=== PATIENT | female | born 1960 ===

== ENCOUNTER 2020-07-12 13:53 | Outpatient (REF) | payer OTHER, MEDICAID, SELFPAY ==
--- NOTE | 2020-07-12 13:54 | XR_ITS ---
EXAMINATION: XR KNEES, STANDING AP XR KNEE, RIGHT CLINICAL INFORMATION: Right knee pain. COMPARISON: Radiographs right knee 12/27/2016. TECHNIQUE: Standing AP view of both knees is performed along with lateral and axial patella views of the right knee. FINDINGS: Right knee shows no definite joint narrowing. No subchondral sclerosis, erosive change, or chondrocalcinosis. There is borderline spur medial femoral condyle and lateral tibial spine. There is spurring at the quadriceps insertion on the patella and trace suprapatellar effusion with borderline thickening of the suprapatellar bursa. Hoffa's fat pad appears normal. Axial view right patella shows small lateral patellar spur. No joint narrowing or erosive change. Left knee shows no definite joint narrowing. No erosive changes or destructive process. XR/XR knee standing BI IMPRESSION: 1. Right Knee: Trace suprapatellar effusion. Mild spurring medial femoral condyle, lateral tibial spine, and quadriceps insertion. No definite joint narrowing. No erosive change. 2. Left Knee: Unremarkable.
--- NOTE | 2020-07-12 13:54 | XR_ITS ---
EXAMINATION: XR KNEES, STANDING AP XR KNEE, RIGHT CLINICAL INFORMATION: Right knee pain. COMPARISON: Radiographs right knee 12/27/2016. TECHNIQUE: Standing AP view of both knees is performed along with lateral and axial patella views of the right knee. FINDINGS: Right knee shows no definite joint narrowing. No subchondral sclerosis, erosive change, or chondrocalcinosis. There is borderline spur medial femoral condyle and lateral tibial spine. There is spurring at the quadriceps insertion on the patella and trace suprapatellar effusion with borderline thickening of the suprapatellar bursa. Hoffa's fat pad appears normal. Axial view right patella shows small lateral patellar spur. No joint narrowing or erosive change. Left knee shows no definite joint narrowing. No erosive changes or destructive process. XR/XR knee RT 2V IMPRESSION: 1. Right Knee: Trace suprapatellar effusion. Mild spurring medial femoral condyle, lateral tibial spine, and quadriceps insertion. No definite joint narrowing. No erosive change. 2. Left Knee: Unremarkable.
== END 2020-07-12 13:54 | disposition home or self-care (01) ==
LOC: HO.HOSX 13:53
PROVIDERS: Visit Provider Physician Assistant
DX: M17.11 Unilateral primary osteoarthritis, right knee (principal)
CPT/HCPCS: 20610; 73560; 73565; 99212; J1040

== ENCOUNTER 2020-12-06 08:19 | Outpatient (REF) | payer OTHER, MEDICAID, SELFPAY ==
--- NOTE | ~2020-12-06 | XR_ITS ---
EXAMINATION: XR KNEE, LEFT CLINICAL INFORMATION: Pain COMPARISON: Previous x-ray July 2020 TECHNIQUE: Lateral and sunrise view of the left knee of the left knee. FINDINGS: No fracture or dislocation or bone lesion is seen. There is mild arthritis at the patellofemoral joint with small osteophytes. There are osteophytes at the quadriceps tendon insertion to the patella and patellar tendon origin. There is a joint effusion. XR/XR knee LT 2V IMPRESSION: Degenerative changes at the patellofemoral joint and joint effusion.
== END 2020-12-06 08:20 | disposition home or self-care (01) ==
LOC: HO.HOSX 08:19
PROVIDERS: Visit Provider Physician Assistant
DX: M17.12 Unilateral primary osteoarthritis, left knee (principal); M25.562 Pain in left knee; Z88.8 Allergy status to other drugs, medicaments and biological substances
CPT/HCPCS: 20610; 73560; J1040

== ENCOUNTER → 2021-04-26 13:17 | Outpatient (BNVA) | payer MEDICARE, MEDICAID, SELFPAY | PROVIDERS: Visit Provider Physician Assistant | DX: M17.12 Unilateral primary osteoarthritis, left knee (principal) | CPT/HCPCS: 99212 ==

== ENCOUNTER 2021-07-01 14:54 | Outpatient (REF) | payer MEDICARE, MEDICAID, SELFPAY ==
--- NOTE | ~2021-07-01 | MR_ITS ---
EXAMINATION: MR KNEE WITHOUT CONTRAST, LEFT CLINICAL INFORMATION: Left knee pain and swelling. Osteoarthritis. COMPARISON: Left knee radiographs dated 12/06/2020. TECHNIQUE: MRI of the knee without contrast was performed using routine sequences on a high-field scanner. FINDINGS: MENISCI: Medial Meniscus: Nondisplaced, oblique tibial articular surface tear of the posterior horn (sagittal image 17/26). Lateral Meniscus: Nondisplaced oblique inner margin/tibial articular surface tear of the meniscal body with extension to the lateral aspect of the posterior horn. Mild degenerative signal associated with the anterior root. LIGAMENTS: Cruciate: Intact. Collateral: Intact. EXTENSOR MECHANISM: Intact. ARTICULAR CARTILAGE/BONE: Patellofemoral Compartment: Lateral patellar articular cartilage signal heterogeneity and surface irregularity. Mild trochlear articular cartilage thinning. Tiny marginal osteophytes. Medial Compartment: Mild articular cartilage thinning. Tiny marginal osteophytes. Lateral Compartment: Mild articular cartilage signal heterogeneity. JOINT FLUID AND BURSAE: Small joint effusion and small Briggs's cyst. MR/MR knee LT wo con IMPRESSION: 1. Nondisplaced oblique tibial articular surface tear of the medial meniscus posterior horn. 2. Nondisplaced oblique inner margin/tibial articular surface tear of the lateral meniscal body extending to the posterior horn. Degenerative signal associated with the anterior root. 3. Mild patellofemoral as well as minimal medial and lateral compartment osteoarthritis. Small joint effusion and small Briggs's cyst.
== END 2021-07-01 14:55 | disposition home or self-care (01) ==
LOC: HO.MRI 14:54
PROVIDERS: Visit Provider Physician Assistant
DX: M17.12 Unilateral primary osteoarthritis, left knee (principal)
CPT/HCPCS: 73721

== ENCOUNTER → 2021-08-08 12:45 | Outpatient (BNVA) | payer MEDICARE, MEDICAID, SELFPAY | PROVIDERS: Visit Provider Physician Assistant | DX: S83.242D Other tear of medial meniscus, current injury, left knee, subsequent encounter (principal); M17.12 Unilateral primary osteoarthritis, left knee | CPT/HCPCS: 99212 ==

== ENCOUNTER 2021-09-04 09:41 | Day surgery (SDC) | payer OTHER, SELFPAY ==
[2021-08-20 13:49] VITALS: BMI 27.7
--- NOTE | 2021-08-26 09:08 | P.CONAN_ITS ---
Documented by User: Mahnaz Fontaine NP 08/26/21 09:09 HPI - Anesthesia Eval Consult details Narrative: 61yo F for Left Knee Arthroscopy PMFSH Active Problems Active Problems: All Active Problems (Updated 08/20/21 @ 13:49 by Yue Sanabria RN) Right knee pain (Acute) Osteoarthritis of right knee (Acute) Patellofemoral arthritis of left knee (Acute) Acute medial meniscus tear of left knee (Acute) Past Medical History Medical History (Updated 08/20/21 @ 13:49 by Yue Sanabria RN) Asthma HTN (hypertension) Surgical History Surgical History (Updated 08/20/21 @ 13:40 by Yue Sanabria RN) Hx of elbow surgery Hx of knee surgery Social History Social History (Updated 12/06/20 @ 08:40 by JAY Lay) Patient Tobacco Use Status: Current everyday Tobacco user Tobacco use type: Cigarette Cigarettes Per Day: 7 Years Smoked: 40 Use of substances other than those prescribed or required for medical reasons: Yes Substance Use Type Other:: advised to hold pre-op Substance Use Frequency: Occasionally Are you DNR?: No Advance Directives: No Advance Directives Information Provided: Yes Advance Directives on File: No Current occupational status: disabled 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 Meds Allergies Allergy/AdvReac Type Severity Reaction Status Date / Time atorvastatin [From Allergy Intermediate swelling/hi Verified 08/20/21 13:35 Lipitor] ves lisinopril Allergy Intermediate Face Verified 08/20/21 13:35 Swelling Home Medications Medication Instructions Recorded Confirmed Last Taken Type albuterol sulfate 2 puff 08/20/21 08/20/21 Unknown History 90 mcg/actuation INHALATION Q4-6H PRN aerosol inhaler (ProAir HFA) fluoxetine 10 mg 10 mg PO DAILY 08/20/21 08/20/21 Unknown History tablet hydrochlorothiazi 12.5 mg PO DAILY 08/20/21 08/20/21 Unknown History de 12.5 mg tablet losartan 50 mg 50 mg PO DAILY 08/20/21 08/20/21 Unknown History tablet trazodone 50 mg 50 mg PO BEDTIME 08/20/21 08/20/21 Unknown History tablet Exam Exam Date and Time: August 26, 2021 0909 Height,Weight and Vital Signs: Height 5 ft 6 in Weight 78.018 kg Assessment and Plan Assessment Anesthesia Assessment: Chart Reviewed Documented by User: Ace Rojas 09/04/21 16:06 PMFSH Past Medical History Medical History (Updated 08/20/21 @ 13:49 by Yue Sanabria RN) Asthma HTN (hypertension) Functional capacity: independent ambulation Family History Family history of problems with anesthesia: No Surgical History Surgical History (Updated 08/20/21 @ 13:40 by Yue Sanabria RN) Hx of elbow surgery Hx of knee surgery History of Problems with Anesthesia: No Social History Social History (Updated 12/06/20 @ 08:40 by JAY Lay) Patient Tobacco Use Status: Current everyday Tobacco user Tobacco use type: Cigarette Cigarettes Per Day: 7 Years Smoked: 40 Use of substances other than those prescribed or required for medical reasons: Yes Substance Use Type Other:: advised to hold pre-op Substance Use Frequency: Occasionally Are you DNR?: No Advance Directives: No Advance Directives Information Provided: Yes Advance Directives on File: No Current occupational status: disabled 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 Meds Allergies Allergy/AdvReac Type Severity Reaction Status Date / Time atorvastatin [From Allergy Intermediate swelling/hi Verified 08/20/21 13:35 Lipitor] ves lisinopril Allergy Intermediate Face Verified 08/20/21 13:35 Swelling Home Medications Medication Instructions Recorded Confirmed Last Taken Type albuterol sulfate 2 puff 08/20/21 08/20/21 Unknown History 90 mcg/actuation INHALATION Q4-6H PRN aerosol inhaler (ProAir HFA) fluoxetine 10 mg 10 mg PO DAILY 08/20/21 08/20/21 Unknown History tablet hydrochlorothiazi 12.5 mg PO DAILY 08/20/21 08/20/21 Unknown History de 12.5 mg tablet losartan 50 mg 50 mg PO DAILY 08/20/21 08/20/21 Unknown History tablet trazodone 50 mg 50 mg PO BEDTIME 08/20/21 08/20/21 Unknown History tablet Exam Airway Mallampati Class: II TM Dist: >3cm Neck ROM: Full Partial: Upper and Lower Loose/Missing/Broken Teeth: Yes Heart: rrr Lungs: bl breath sounds Assessment and Plan Assessment Anesthesia Assessment: Anesthesia Plan Discussed Final Anesthetic Review Family History of Problems with Anesthesia: No History of Problems with Anesthesia: No NPO: Yes ASA Class: II Final Preanesthetic Review: Meds/Allgs Chart Reviewed and Anes Risks/Benef Reviewed Patient Risk: Intermediate Procedure Risk: Intermediate Anesthetic Plan Anesthetic Plan: GA Disposition: Standard PACU
--- NOTE | 2021-08-27 10:34 | PC.NURSE ---
preop call made to pt on 08/26/21 to give arrival time of 0800 for procedure today with reimbursement representative. pt had not answered therefor voicemail was left with reimbursement representative. preop information and education mailed home did not provide arrival time and stated the surgical department would be calling the day before with arrival time. Pt no showed for 0800 on day of procedure 08/27/21. phone call placed to patient at 0850 and was unable to leave voicemail at that time. Dr. Zuleta and OR team aware.
[2021-09-04] VITALS (14 sets, daily range): BP systolic 113–150; BP diastolic 67–99; PULSE 62–76; RESP 16–22; TEMP 36.2–36.7; O2SAT 97–99
[2021-09-04] MEDS: Lactated Ringers 1,000 ML 100 ML IVCONT (10:42)
--- NOTE | 2021-09-04 12:57 | MHC.SHP ---
Pre-Procedural Eval Section A Date of Service: 09/04/21 The patient is an INPATIENT: No Changes since office visit: Yes Patient answered all questions; No Cold of Flu in the past 2 weeks, No New Medical Problems and No Changes in Medication The History & Physical has been completed within 30 days and I have reviewed it.: Yes Section B Chief Complaint: medial meniscus tear Allergies: Allergies Allergy/AdvReac Type Severity Reaction Status Date / Time atorvastatin [From Lipitor] Allergy Intermediate swelling/hi Verified 08/20/21 13:35 ves lisinopril Allergy Intermediate Face Verified 08/20/21 13:35 Swelling Plan I have reviewed the history and physical and performed a pertinent physical examination on my patient. No changes have occurred unless specified.
[2021-09-04] MEDS: fentaNYL citrate/PF 100 MCG/2 ML VIAL 25 MCG IVPUSH ×5 (14:15→14:35)
[2021-09-04] MEDS: oxyCODONE HCl Immed Release 5 MG TABLET PO (14:15)
[2021-09-04] MEDS: oxyCODONE HCl Immed Release 5 MG TABLET 10 MG PO (14:35)
--- NOTE | 2021-09-04 15:14 | P.BOP_ITS ---
Brief Operative Note Date of Service: 09/04/21 Pre-op diagnosis: left knee PF OA and MMT Post-op diagnosis: same Procedure: left knee mm and chondroplasty Surgeon: Slim Zuleta MD Anesthesia: GETA and local Was an Loan Analyst used for this Procedure?: No Loan Analyst: Rosita Cortes Estimated blood loss (mL): 5 IV fluids (mL): 500 Pathology: none sent Condition: stable Disposition: PACU
--- NOTE | 2021-09-09 12:15 | P.OP_ITS ---
Operative Note Operative Note Date of Service: 09/04/21 Narrative: Date of Service: 09/04/21 Pre-op diagnosis: left knee PF OA and MMT Post-op diagnosis: same Procedure: left knee mm and chondroplasty Surgeon: Slim Zuleta MD Anesthesia: GETA and local Was an Cycling Instructor used for this Procedure?: No Cycling Instructor: Rosita Cortes Estimated blood loss (mL): 5 IV fluids (mL): 500 Pathology: none sent Condition: stable Disposition: PACU Patient was brought to the operating room placed supine on the arthroscopic table and prepped and draped in standard sterile fashion. A time-out was called to identify proper site proper procedure proper surgeon and IV antibiotics per weight were administered. I began by exsanguinating the limb and insufflating tourniquet to 300 mm Hg. Then made a standard anterolateral stab incision. knee was insufflated with water and 30 degree arthroscope was placed. There was grade 1 fibrillations of the patella but overall suprapatellar pouch was plane and the gutters were clean. I descended into the medial compartment where I made my medial portal under direct visualization. There was obvious of complex tear of the body and posterior horn of the medial meniscus. Root was intact and there was grade 2 changes with some scattered grade 3 changes of the MFC. I used a combination of biter shaver and cautery to remove unstable portions of the meniscus. Approximately 30% meniscal volume was removed. I perfromed a chondroplasty of the MFC. Once I was happy with this the ACL was examined and found to be intact and the lateral compartment also was without the need for intervention. I then removed all instrumentation and closed the portals with skin glue. 25 mL of 2% Marcaine with epinephrine was injected into the joint and the surrounding soft tissues. Patient was then placed in sterile dressing extubated brought recovery room stable condition. There were no known complications.
== END 2021-09-04 17:30 | disposition home or self-care (01) ==
LOC: HO.SSS 09:41
PROVIDERS: Visit Provider Orthopaedic Surgery
PROC: (CPT 29870; principal; 2021-09-04 11:30)
DX: S83.232A Complex tear of medial meniscus, current injury, left knee, initial encounter (principal); M17.12 Unilateral primary osteoarthritis, left knee; M25.462 Effusion, left knee; M71.22 Synovial cyst of popliteal space [Baker], left knee; X58.XXXA Exposure to other specified factors, initial encounter; Y93.9 Activity, unspecified; Y92.9 Unspecified place or not applicable; Y99.8 Other external cause status; Z88.8 Allergy status to other drugs, medicaments and biological substances
CPT/HCPCS: 29881; J0171; J0690; J2250; J2550; J3010

== ENCOUNTER → 2021-09-16 13:03 | Outpatient (BNVA) | payer OTHER, SELFPAY | PROVIDERS: Visit Provider Physician Assistant | DX: S83.242D Other tear of medial meniscus, current injury, left knee, subsequent encounter (principal); M17.12 Unilateral primary osteoarthritis, left knee | CPT/HCPCS: 99212 ==

== ENCOUNTER → 2021-12-09 12:58 | Outpatient (BNVA) | payer OTHER, SELFPAY | PROVIDERS: Visit Provider Physician Assistant | DX: M17.12 Unilateral primary osteoarthritis, left knee (principal) | CPT/HCPCS: 99212 ==

== ENCOUNTER 2023-04-20 11:06 | Outpatient (AMB) | payer OTHER, SELFPAY ==
--- NOTE | 2023-04-20 11:08 | A.OFFVIS_ITS ---
Intake Vital Signs 04/20/23 11:11 Height 5 ft 7 in Weight 162 lb BMI 25.4 Intake Visit Reasons: ov- rt knee pain req injection last inj 07/29/20 Intake Note: Tiffani a 62 year old female who presents today for a follow up of right knee pain, last injection 07/29/20. Patient reports injection provided her relief until recently. States constant pain presented last week. She would like to repeat injection. Allergies atorvastatin [From Lipitor] Allergy (Intermediate, Verified 04/20/23 11:09) swelling/hives lisinopril Allergy (Intermediate, Verified 04/20/23 11:09) Face Swelling HPI ov- rt knee pain req injection last inj 07/29/20 HPI Details 62-year-old female who returns to the [facility] today for a follow-up of right knee pain. She had her last injection on 07/29/20 which provided her relief until last week. She states she has constant pain in her right knee and would like to repeat the injection. 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 Tenderness along the medial joint line. Full ROM with crepitus. Positive Callie?s. No ligamentous laxity. NVI. Office Procedures Joint Injection/Drain Joint Injection/Drain Primary Site: right knee Prep: site was prepped using aseptic technique, ethochloride spray was applied and injection warnings given Injected: 80 mg of, DepoMedrol, with 8 mL of, 1% plain lidocaine and in the joint Approach Used: anterolateral Procedure: The patient tolerated the procedure well and there was some relief with the local anesthesia Coding 22820 - Glenohumeral/Tronchanteric Bursa/Intraarticular Procedure code (CPT) selection complete Results Reviewed Results Reviewed: 04/20/23 11:25 Lidocaine HCl 2 % MPF [Xylocaine 2 % MPF] 5 ml .ROUTE .STK-MED ONE methylPREDNISolone acetate [DEPO-MedroL] 80 mg .ROUTE .STK-MED ONE Assessment & Plan Assessment & Plan (1) Osteoarthritis of right knee: Code(s): M17.11 - Unilateral primary osteoarthritis, right knee Qualifiers: Osteoarthritis type: primary Qualified Code(s): M17.11 - Unilateral primary osteoarthritis, right knee Plan We discussed options today which include steroid injection. They did consent to move forward with the right knee injection, which was tolerated well. I recommended rest, ice and elevation and OTC anti-inflammatories PRN for discomfort. An MRI of the right knee was also to further evaluate the meniscus. If symptoms persist or worsens over the next 6-8 weeks, patient will contact the office, otherwise follow-up as needed. Patient Instructions: Scribed for Imer Tim PA-C, by Joe Robertson biomedical equipment specialist, on 04/20/2023 at 11:30 AM JOYCE. Imer Palacio PA-C, have personally reviewed and agree with the information entered by the scribe. Coding Level of Care Code Est Pt Level 3 (89279) Diagnoses Primary osteoarthritis of right knee M17.11 Osteoarthritis type: primary CPT Codes Coding - Joint 7: 35000 - Glenohumeral/Tronchanteric Bursa/Intraarticular ([id number])
[2023-04-20 11:11] VITALS: BMI 25.4
== END 2023-04-20 12:35 | disposition home or self-care (01) ==
PROVIDERS: Visit Provider Physician Assistant
DX: M17.11 Unilateral primary osteoarthritis, right knee (principal)
CPT/HCPCS: 20610

== ENCOUNTER → 2023-04-20 11:06 | Outpatient (BNVA) | payer OTHER, SELFPAY | PROVIDERS: Visit Provider Physician Assistant | DX: M17.11 Unilateral primary osteoarthritis, right knee (principal) | CPT/HCPCS: 20610; 99212; J1040 ==

== ENCOUNTER 2023-07-01 14:13 | Outpatient (REF) | payer OTHER, SELFPAY ==
--- NOTE | ~2023-07-01 | MR_ITS ---
EXAMINATION: MR KNEE WITHOUT CONTRAST, RIGHT CLINICAL INFORMATION: Unilateral primary osteoarthritis of the right knee. COMPARISON: 07/12/2020 (radiographs) TECHNIQUE: MRI of the knee without contrast was performed using routine sequences on a high-field scanner. FINDINGS: MENISCI: Medial Meniscus: Intact Lateral Meniscus: There is a complex tear of the anterior horn and body with extrusion of much of the meniscal body. A radial component is suspected at the anterior horn, sparing the attachment to the anterior intrameniscal ligament. A horizontal component may be present at the meniscal body. LIGAMENTS: Cruciate: Intact Collateral: Intact EXTENSOR MECHANISM: Intact ARTICULAR CARTILAGE/BONE: Patellofemoral Compartment: There is mild nonuniform chondral thinning at the patella with a near full-thickness chondral fissure at the lateral facet and chondral fibrillation at the medial facet. More mild chondral thinning is present at the trochlea centrally. Small marginal osteophytes. Medial Compartment: Normal Lateral Compartment: Small to moderate size marginal osteophytes. Minimal chondral surface irregularity at the weightbearing surfaces of the lateral femoral condyle and lateral tibial plateau. JOINT FLUID AND BURSAE: Trace joint effusion. No Briggs's cyst. Minimal chondral debris in the anterior recess of the lateral compartment. There is a ovoid 1 cm low signal intensity loose body in the suprapatellar pouch just proximal to the trochlea. MR/MR knee RT wo con IMPRESSION: 1. Complex tear of the anterior horn and body of the lateral meniscus with extrusion of the meniscal body. 2. Mild patellofemoral and lateral compartment osteoarthritis. 3. Trace joint effusion with a 1 cm loose body in the suprapatellar pouch.
== END 2023-07-01 14:14 | disposition home or self-care (01) ==
LOC: HO.MRI 14:13
PROVIDERS: Visit Provider Physician Assistant
DX: M17.11 Unilateral primary osteoarthritis, right knee (principal)
CPT/HCPCS: 73721

== ENCOUNTER 2024-01-14 06:01 | Outpatient (REF) | payer OTHER, SELFPAY ==
--- NOTE | ~2024-01-14 | XR_ITS ---
EXAMINATION: XR KNEE, RIGHT CLINICAL INFORMATION: Unilateral primary osteoarthritis right knee. COMPARISON: 07/01/2023 MR right knee and left knee. 12/06/2020 x-ray left knee, 07/12/2020 bilateral knees. TECHNIQUE: AP standing view of bilateral knees as well as lateral and sunrise views of the right knee of the right knee. FINDINGS: RIGHT KNEE: Moderate joint effusion. Tiny tricompartmental osteophytes. Mild narrowing of the medial and lateral compartments. AP STANDING VIEW LEFT KNEE: Mild narrowing of the medial and lateral compartments with tiny marginal osteophytes. XR/XR knee RT 3V IMPRESSION: Mild degenerative changes in the bilateral knees.
== END 2024-01-14 06:02 | disposition home or self-care (01) ==
LOC: HO.HOSX 06:01
PROVIDERS: Visit Provider Physician Assistant
DX: M17.11 Unilateral primary osteoarthritis, right knee (principal); M70.61 Trochanteric bursitis, right hip
CPT/HCPCS: 20610; 73562; 99212; J1010

== ENCOUNTER 2024-01-14 09:53 | Outpatient (AMB) | payer OTHER, SELFPAY ==
--- NOTE | 2024-01-14 10:11 | A.OFFVIS_ITS ---
Vital Signs 01/14/24 10:12 Height 5 ft 7 in Weight 162 lb BMI 25.4 Intake Visit Reasons: ov- rt knee pain req injection last inj 04/20/23 Intake Note: Tiffani a 63 year old female who presents today for a follow up on right knee pain, last injection on 04/20/23. Patient reports injection provided her with relief, states her pain has returned for about 3 months. Her pain has been in her hip and radiating down the lateral aspect of leg. Discomfort with sleeping. Finds very little relief with Tylenol or naproxen. Hx of sciatica. Allergies atorvastatin [From Lipitor] Allergy (Intermediate, Verified 01/14/24 10:17) swelling/hives lisinopril Allergy (Intermediate, Verified 01/14/24 10:17) Face Swelling HPI HPI ov- rt knee pain req injection last inj 04/20/23: Details: 63-year-old female who returns to the office today for a follow-up of right knee pain. She had her last injection on 04/20/23 which provided her relief until 3 months ago. She currently states she has pain in her right knee that is aggravated with sleeping at night. She finds minimal relief with Tylenol or naproxen. She has a history of sciatica. 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 No pain with ROM of the hip. Pain along the greater trochanter. No pain with hip flexion or abduction. Negative tenderness along the SI joint, Negative SLR. NVI. Office Procedures Joint Injection/Drain Joint Injection/Drain Details: R trochanteric bursa Prep: site was prepped using aseptic technique, ethochloride spray was applied and injection warnings given Injected: 80 mg of, DepoMedrol, with 8 mL of and 1% plain lidocaine Procedure: The patient tolerated the procedure well and there was some relief with the local anesthesia Coding - Glenohumeral/Tronchanteric Bursa/Intraarticular Procedure code (CPT) selection complete Results Reviewed Results Reviewed: Xrays were obtained in the office today and personally reviewed by me of the right knee show mild oa Assessment & Plan Assessment & Plan (1) Osteoarthritis of right knee: Code(s): M17.11 - Unilateral primary osteoarthritis, right knee Category: Medical Qualifiers: Osteoarthritis type: primary Qualified Code(s): M17.11 - Unilateral primary osteoarthritis, right knee (2) Trochanteric bursitis of right hip: Code(s): M70.61 - Trochanteric bursitis, right hip Category: Medical Plan We discussed options today, which include steroid injection. The patient did consent to move forward with the right hip injection, which was tolerated well. I recommended rest, ice, and elevation and OTC anti-inflammatories as needed for discomfort. She was also given a course of physical therapy in the office today. If symptoms persist over the next 6-8 weeks, they will contact the office, otherwise as needed. Orders: Orders XR knee RT 3V Today M17.11 - Unilateral primary osteoarthritis, right knee Patient Instructions: Scribed for Imer Tim PA-C, by Joe Robertson medical lab scientist, on 01/14/2024 at 10:15 AM EST.? I, Imer Tim PA-C, have personally reviewed and agree with the information entered by the scribe. Coding Level of Care Code Est Pt Level 3 (81953) Diagnoses Primary osteoarthritis of right knee M17.11 Osteoarthritis type: primary Trochanteric bursitis of right hip M70.61 CPT Codes Coding - Joint 7: 71872 - Glenohumeral/Tronchanteric Bursa/Intraarticular ([id number])
[2024-01-14 10:12] VITALS: BMI 25.4
== END 2024-01-14 10:34 | disposition home or self-care (01) ==
PROVIDERS: Visit Provider Physician Assistant
DX: M17.11 Unilateral primary osteoarthritis, right knee (principal); M70.61 Trochanteric bursitis, right hip
CPT/HCPCS: 20610; 99213

== ENCOUNTER 2024-10-05 11:43 | Outpatient (AMB) | payer OTHER, SELFPAY ==
--- NOTE | 2024-10-05 12:02 | MHC.OFFVIS ---
Intake Visit Reasons: OV-RT knee pain inj req last inj 01/14/24 Intake Note: Tiffani is a 63 year old female who presents today for a follow up on right knee pain, last injection on 01/14/24. Allergies atorvastatin [From Lipitor] Allergy (Intermediate, Verified 10/05/24 12:03) swelling/hives lisinopril Allergy (Intermediate, Verified 10/05/24 12:03) Face Swelling HPI HPI OV-RT knee pain inj req last inj 01/14/24: Details: 64-year-old female returns to the office today for right knee pain status post injection on 01/14/2024. She states the injection is helpful and allows her to perform activities without discomfort. However; when the injection wears off she does have significant limitations with stairs or prolonged standing or walking. 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 Tenderness along the medial joint line. Full ROM with crepitus. Positive Callie?s. No ligamentous laxity. NVI. Office Procedures AMB Joint Injection/Aspiration Joint Injection/Aspiration Primary Site: right knee Prep: site was prepped using aseptic technique, ethochloride spray was applied and injection warnings given Injected: 80 mg of, DepoMedrol, with 8 mL of, 1% plain lidocaine and in the joint Approach Used: anterolateral Procedure: The patient tolerated the procedure well and there was some relief with the local anesthesia Coding 74682 - Glenohumeral/Tronchanteric Bursa/Intraarticular Procedure code (CPT) selection complete Assessment & Plan Assessment & Plan (1) Osteoarthritis of right knee: Code(s): M17.11 - Unilateral primary osteoarthritis, right knee Category: Medical Qualifiers: Osteoarthritis type: primary Qualified Code(s): M17.11 - Unilateral primary osteoarthritis, right knee Plan We discussed options today, which include steroid injection. The patient did consent to move forward with the right knee injection, which was tolerated well. I recommended rest, ice, and elevation and OTC anti-inflammatories as needed for discomfort. She was also given a course of physical therapy in the office today. If symptoms persist over the next 6-8 weeks, they will contact the office, otherwise as needed. Coding Level of Care Code Est Pt Level 3 (20228) Complex EM visit Add On G2211 Diagnoses Primary osteoarthritis of right knee M17.11 Osteoarthritis type: primary CPT Codes Coding - Joint 7: 59791 - Glenohumeral/Tronchanteric Bursa/Intraarticular ([id number])
--- OUTSIDE RECORDS SUMMARY | 2024-10-05 14:45 | XMS_ITS | Clinical Summary ---
Author Organization [employer] [facility] [place] [address] Care Team Providers Care Care Manager Cna Name Role Phone Porsha Robles MD Primary Care Provider [phone] Social History Tobacco Use Types Packs/Day Years Used Date Smoking Tobacco: Never Assessed Comments Unknown Sex and Gender Information Value Date Recorded Sex Assigned at Not on file Legal Sex Female 9:04 AM EST Gender Identity Not on file Sexual Orientation Not on file Last Filed Vital Signs Vital Sign Reading Time Taken Comments Blood Pressure 112/76 05/15/2022 4:10 PM EDT Pulse 64 05/15/2022 4:10 PM EDT Temperature - - Respiratory Rate - - Oxygen Saturation - - Inhaled Oxygen Concentration - - Weight 76.8 kg (169 lb 4.8 oz) 05/15/2022 4:10 P M EDT Height 170.2 cm (5' 7 ) 05/15/2022 4:10 PM EDT Body Mass Index 26.52 05/15/2022 4:10 PM EDT Plan of Treatment Health Maintenance Due Date Last Done Comments Breast Cancer Screening 1959 DTaP,Tdap,and Td Vaccines (1 - Tdap) 1978 Cervical Cancer Screening: P ap Smear 1980 Pneumococcal Vaccine: 50+ Ye ars (1 of 1 - PCV) 2009 Zoster Vaccines (1 of 2) 2009 Colorectal Cancer Screening: Colonoscopy 07/24/2022 Depression Screening 07/24/2022 Hepatitis C Screening 07/24/2022 Osteoporosis Screening (Bone Density Screening) 07/24/2022 Social Influencers of Health Screening 07/24/2022 COVID-19 Vaccine (2023-2 5 season) 2024 Influenza Vaccine (#1) 2024 Falls Risk Assessment 2024 RSV Immunization Patients 60 + Years Old (1 - 1-dose 75+ series) 2034 HIB Vaccines Aged Out No longer eligi ble based on patient's age to complete this topic HPV Vaccines Aged Out No longer eligi ble based on patient's age to complete this topic Hepatitis A Vaccines Aged Out No long er eligible based on patient's age to complete this topic Hepatitis B Vaccines Aged Out No long er eligible based on patient's age to complete this topic IPV Vaccines Aged Out No longer eligi ble based on patient's age to complete this topic MMR Vaccines Aged Out No longer eligi ble based on patient's age to complete this topic Meningococcal ACWY Vaccine Aged Out N o longer eligible based on patient's age to complete this topic Meningococcal B Vacine Aged Out No lo nger eligible based on patient's age to complete this topic Pneumococcal Vaccine: Pediat rics (0 to 5 Years) and At-Risk Patients (6 to 64 Years) Aged Out No longer eligible b ased on patient's age to complete this topic RSV Immunization Patients Un jay 20 months Aged Out No longer eligible b ased on patient's age to complete this topic Varicella Vaccines Aged Out No longer eligible based on patient's age to complete this topic Care Teams Care Manager Cna Relationship Specialty Start Date End Date Porsha Robles MD [address] [place] [id number] PCP - General Internal Medicine 05/22/22
--- OUTSIDE RECORDS SUMMARY | 2024-10-05 14:45 | XMS_ITS | Clinical Summary ---
Author Organization [facility] Address [address] [place] [address] Care Team Providers Care Lead Project Engineer Name Role Phone Unavailable Primary Care Provider Unavailabl e Source Comments PLEASE NOTE, if this patient is a minor, it may be UNLAWFUL to discuss sensitive information that is contained in these records (such as FAMILY PLANNING, MENTAL HEALTH or SUBSTANCE ABUSE) with the minor patient's parent or other person without the patient's specific authorization.[facility] Allergies Active Allergy Reactions Criticality Noted Date Comments Fat Emulsion Swelling Medium 06/25/2017 Lisinopril Swelling 03/29/2020 Medications polyethylene glycol 3350 (GLYCOLAX, MIRALAX) 17 gram packetIndication s:Slow transit constipation Take 17 g by mouth once daily 30 Each 3 9 Active amLODIPine (NORVASC) 5 mg tabletIndication s:Essential hypertension Take 1 Tab by mouth once daily 30 Tab 3 0 Active PAIN RELIEF EXTRA STRENGTH 500 mg tabletIndication s:Chronic pain of right knee,Right buttock pain TAKE 2 TABLETS BY MOUTH 3 (THREE) TIMES A DAY NEEDED FOR PAIN 70 Tablet 5 0 Active diclofenac sodium (VOLTAREN) 1 % gelIndications:C hronic bilateral low back pain without sciatica Apply topically 2 (two) times daily 100 g 2 1 Active albuterol sulfate 90 mcg/actuation inhalerIndicatio ns:Mild intermittent asthma without complication INHALE 2 PUFFS BY MOUTH INTO THE lungs EVERY 4 HOURS NEEDED FOR SHORTNESS OF BREATH OR FOR WHEEZING 18 g 3 1 Active FLUoxetine (PROZAC) 20 mg tabletIndication s:Anxiety state TAKE ONE TABLET BY MOUTH EVERY MORNING 30 Tablet 5 1 Active baclofen (LIORESAL) 10 mg tabletIndication s:Chronic bilateral low back pain without sciatica TAKE ONE TABLET BY MOUTH 2 (two) times a day 20 Tablet 1 Active losartan (COZAAR) 50 mg tabletIndication s:Essential hypertension TAKE ONE TABLET BY MOUTH ONCE DAILY 30 Tablet 2 1 Active docusate sodium (COLACE) 100 mg capsuleIndicatio ns:Slow transit constipation TAKE ONE CAPSULE BY MOUTH 2 (two) times a day NEEDED FOR CONSTIPATION 60 Capsule 3 1 Active traZODone (DESYREL) 100 mg tabletIndication s:Anxiety state,Psychophys iological insomnia TAKE ONE TABLET BY MOUTH NIGHTLY AT BEDTIME 30 Tablet 5 1 Active hydroCHLOROthiaz anmol (HYDRODIURIL) 50 mg tabletIndication s:Essential hypertension TAKE ONE TABLET BY MOUTH ONCE DAILY 30 Tablet 2 1 Active naproxen (NAPROSYN) 500 mg tabletIndication s:Chronic bilateral low back pain without sciatica Take 1 Tablet by mouth 2 (two) times daily as needed (pain) take with food 30 Tablet 3 1 Active Active Problems Patient Care Coordination No te Formatting of this note migh t be different from the original. 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 Problem Noted Date Diagnosed Date Psychophysiological insomnia 06/25/2017 Smoker 06/25/2017 Anxiety state Depression Essential hypertension Right knee pain Chronic bilateral low back pain Immunizations Name Administration Dates Next Due Flu, Preservative Free 06/18/2020,2018,09/09/2018,06/25 INFLUENZA, SEASONAL, INJECTABLE 05/09/2014,06/10 INFLUENZA, SEASONAL, INJECTA BLE, PRESERVATIVE FREE 04/28/2016,06/22/2015 Moderna COVID-19 Vaccine, re d cap blue label, 12+ Primary Series 08/12/2021 PNEUMOCOCCAL POLYSACCHARIDE PPV23 10/07/2018 TDAP 09/09/2018 Td (adult), 5 Lf tetanus tox oid, preservative free 08/10/2000 Td(adult),2 Lf tetanus toxoid,preservative free 08/10/2000 Family History Medical History Relation Name Comments Heart Problems Father Hypertension Mother Mental illness Mother Relation Name Status Comments Father Mother Alive Social History Tobacco Use Types Packs/Day Years Used Date Smoking Tobacco: Some Days Cigarettes Smokeless Tobacco: Never Tobacco Cessation:Ready to Q uit: No; Counseling Given: Yes Alcohol Use Standard Drinks/Week Comments Yes 0 (1 standard drink = 0.6 oz pur e alcohol) Socially Social Connections Answer Date Recorded Social Connections and Isolation 0 07/22/2023 Financial Resource Strain Answer Date R ecorded Financial Resource Strain 0 2022 Stress Answer Date Recorded Stress 0 07/22/2023 Physical Activity Answer Date Recorded Physical Activity 0 07/22/2023 Food Insecurity Answer Date Recorded Food 0 07/22/2023 Transportation Needs Answer Date Record ed Transportation 0 07/22/2023 Housing Stability Answer Date Recorded Housing 0 07/22/2023 Safety and Environment Answer Date Compa rded Safety 0 07/22/2023 Utilities Answer Date Recorded Utilities 0 07/22/2023 Employment Answer Date Recorded Employment 0 07/22/2023 Comments No Sex and Gender Information Value Date Recorded Sex Assigned at Female 06/25/2017 1:13 PM PST Legal Sex Female 9:03 AM PDT Gender Identity Female 06/25/2017 1:13 PM PST Sexual Orientation Straight 06/25/2017 1: 13 PM PST Occupation Industry Job Start Date Job End Date Unemployed-on disability Not on file Not on file Not on file Last Filed Vital Signs Vital Sign Reading Time Taken Comments Blood Pressure 138/90 09/20/2020 2:40 PM EST Pulse 92 09/20/2020 2:40 PM EST Temperature 36.8 ??C (98.3 ??F) 09/20/2020 2:40 PM ES T Respiratory Rate 16 09/20/2020 2:40 PM EST Oxygen Saturation - - Inhaled Oxygen Concentration - - Weight 78.5 kg (173 lb) 09/20/2020 2:40 PM EST Height 162.6 cm (5' 4 ) 08/20/2020 10:31 AM EST Body Mass Index 29.7 08/20/2020 10:31 AM EST Plan of Treatment Health Maintenance Due Date Last Done Comments CT Colonography 2004 Colonoscopy 2004 Fecal DNA 2004 Flexible Sigmoidoscopy 2004 Imm-Zoster, Recombinant (1 of 2) 2009 Imm-Pneumococcal 65+ (2 of 2 - PCV) 10/07/2019 10/07/2018 Tobacco Cessation Counseling (#1) 10/07/2019 019, 09/29/2017 Tobacco Screening 10/07/2019 10/07/2018, 09/29/2017 Breast Cancer Screening (Mammogram) 09/13/2020 09/13/2018 Medicare Annual Wellness Visit 06/18/2021 06/18/2020 Hypertension Screening (#1) 09/20/2021 Colorectal Cancer Screening 05/06/2022 FIT/gFOBT 05/06/2022 05/06/2021 Diabetes Screening 06/18/2023 06/18/2020, 1 08/18/2019, 09/09/2018, Additional history exists [id number] (2 - season) 2024 022 Imm-Influenza (#1) 2024 06/18/2020, 0 05/05/2019, 09/09/2018, Additional history exists Bone Density Screening 2024 Falls Prevention 2024 Alcohol and Drug Screen 08/10/2024 06/18/20, 09/29/2017, 09/29/2017 Depression Annual Screen 08/10/2024 09/29/2017 Lipid Screening 06/18/2025 06/18/2020 Imm-DTaP/Tdap/Td (2 - Td or Tdap) 09/09/2028 09/09/2018, 08/10/2000, 08/10/2000 HIV Screening Completed 06/18/2020 Hepatitis C Screening Completed 06/18/2020 Procedures Procedure Name Priority Date/Time Associated Diagnosis Comments HISTORICAL FECAL GLOBIN (FIT) 05/06/2021 3:00 AM EDT ANTIBODY HIV-1&HIV-2 SINGLE RESULT Routine 06/18/2020 3:19 PM EST Encounter for general adult medical examination w/o abnormal findings HEPATITIS A,B,C PANEL Routine 06/18/2020 3:19 PM EST Encounter for general adult medical examination w/o abnormal findings HEMOGLOBIN GLYCOSYLATED A1C Routine 06/18/2020 3:19 PM EST Encounter for general adult medical examination w/o abnormal findings LIPID PANEL Routine 06/18/2020 3:13 PM EST Encounter for general adult medical examination w/o abnormal findings from Last 3 Months or Most Recently Relevant to Health Maintenance Results * HISTORICAL FECAL GLOBIN (FIT) (05/06/2021 3:00 AM EDT) 05/06/2021 3:00 AM EDT Damian Ratliff MD LAB - NO BLOOD DRAW Final Resul t * (ABNORMAL) HEPATITIS A,B,C PANEL (06/18/2020 3:19 PM EST) HEPATITIS B SURFACE ANTIBODY NEGATIVE NEGATIVE [facility] HEPATITIS C VIRUS DIAGNOSTIC NEGATIVE NEGATIVE [facility] HEPATITIS A ANTIBODY TOTAL POSITIVE(A) NEGATIVE [facility] Comment: Over the counter supplements containing high doses of biotin may interfere with this assay. ??If interference is suspected, patients shoud be retested after refraining from biotin supplements for 72 hours. HEPATITIS B CORE ANTIBODY NEGATIVE NEGATIVE [facility] HEPATITIS B SURFACE ANTIGEN NEGATIVE NEGATIVE [facility] Comment: Over the counter supplements containing high doses of biotin may interfere with this assay. ??If interference is suspected, patients shoud be retested after refraining from biotin supplements for 72 hours. Blood Blood / Unknown 06/18/2020 3 :19 PM EST 06/18/2020 4:13 PM EST Narrative [facility] - 06/18/2020 8:29 PM EST [employer], [place] [address] Cork Sorter - Asiya Wei MD PT ID [id number] ORD# [id number] [facility] S[facility] LAB - BLOOD DRAW Edited Res ult - Final [address] [address], [place] [phone] * HIV-1 & HIV-2 ANTIBODIES (06/18/2020 3:19 PM EST) Pathologist [facility] HIV 1 AND 2 ANTIBODY SCREEN NEGATIVE NEGATIVE [facility] Comment: This assay is a 4th generation assay allowing for earlier detection of HIV infection by detecting the presence of the HIV-1 p24 antigen as well as the traditional antibodies to HIV type 1 (including group O) and type 2. ??Use of a 4th generation assay is the current CDC recommendation for HIV screening. Blood Blood / Unknown 06/18/2020 3 :19 PM EST 06/18/2020 4:13 PM EST Narrative [facility] - 06/18/2020 7:11 PM EST [employer] [address] Cork Sorter - Asiya Wei MD PT ID [id number] ORD# [id number] [facility] - BLOOD DRAW Final Resu lt Performing Organization Address City/[facility]/[place] [address], * HEMOGLOBIN, GLYCOSYLATED (A1C) (06/18/2020 3:19 PM EST) [facility] GLYCATED HEMOGLOBIN A1C 5.4 <6.5 % [facility] ESTIMATED AVERAGE GLUCOSE 108 mg/dL [facility] Blood Blood / Unknown 06/18/2020 3 :19 PM EST 06/18/2020 4:13 PM EST Narrative [facility] - 06/18/2020 8:11 PM EST [employer], [place] [address] Cork Sorter - Asiya Wei MD PT ID [id number] ORD# [id number] [facility] - BLOOD DRAW Final Resu lt Performing Organization Address City/[facility]/[place] [address], * (ABNORMAL) LIPID PANEL (06/18/2020 3:13 PM EST) CHOLESTEROL 190 0 - 200 mg/dL [facility] TRIGLYCERIDES 247(H) 0 - 150 mg/dL [facility] HDL CHOLESTEROL 55 >40 mg/dL [facility] LDL CALCULATED 86 0 - 100 mg/dL [facility] TC-HDLC RATIO 3.5 0 - 4.4 mg/dL [facility] Blood Blood / Unknown 06/18/2020 3 :13 PM EST 06/18/2020 4:13 PM EST Narrative [facility] - 06/18/2020 6:23 PM EST [employer], a member of [address] [address] Cork Sorter - Asiya Wei MD PT ID [id number] ORD# [id number] Capri PRICEP [facility] - BLOOD DRAW Final Resu lt [facility] [address] [place] [address], from Last 3 Months or Most Recently Relevant to Health Maintenance [place] [employer] MED[place]ARE [facility] Member Subscriber Plan / Payer (Ef fective 2021-Present) Name:Janelle Nguyenida Relation to Subscriber:Self Name:Tiffani Nguyen Payer ID:[id number] Group ID:Not on file Type:Indemnity Address: [place] [address] [place] [id number]
== END 2024-10-05 12:19 | disposition home or self-care (01) ==
PROVIDERS: Visit Provider Physician Assistant
DX: M17.11 Unilateral primary osteoarthritis, right knee (principal)
CPT/HCPCS: 20610; 99213

== ENCOUNTER → 2024-10-05 11:43 | Outpatient (BNVA) | payer OTHER, SELFPAY | PROVIDERS: Visit Provider Physician Assistant | DX: M17.11 Unilateral primary osteoarthritis, right knee (principal) | CPT/HCPCS: 20610; 99212; J1010; J2003 ==

== ENCOUNTER 2025-06-21 13:40 | Outpatient (AMB) | payer OTHER, SELFPAY ==
--- OUTSIDE RECORDS SUMMARY | 2007-12-07 19:00 | XMS_ITS | Continuity of Care Document ---
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 Name Role Phone Dixie Andujar Unavailable Unavailable Allergies, Adverse Reactions, Alerts Substance Reaction Status Criticality lisinopril Active No Information Medications Medication Instructions Dosage Effective Dates (start - stop) Status Comments cyclobenzaprine 10 mg Tab 1 Every Day At Bedtime As Needed - Active OptiChamber Advantage Spacer use as directed - Active ibuprofen 600 mg Tab 1 tab PO every 6 hours prn - Active fluoxetine 10 mg Cap 1 Every Morning - Active Chantix Starting Month Larry 0.5 mg (11)-1 mg (3x14) Tabs in a Dose Pack as directed - Active FreeStyle Flash System Kit one daily with meal Jul - Active hydrochlorothiazide 25 mg Tab 1 Every Morning for blood pressure - Active ALBUTEROL 2 puffs Q 4 hours prn cough SOB - Active Advance Directives Directive Yes / No Effective Date File Name No Information Encounters Encounter Description Practice Location Reason(s) For Visit Diagnoses Date Provider Providers Copied on Encounter [facility], [address] [facility], [place], [place], [id number], [place] tel:[phone] Converted Locations No Information 8 Sylvester Colin. [address] [place], [place], [id number]. tel:[phone] [facility], [address] [facility], [place], [place], [id number], [place] tel:[phone] Converted Locations No Information 8200 8 No Information [facility], [address] [facility] [address], [place], [place], [id number], [place] tel:[phone] Converted Locations No Information 8 Z-Converted Provider. . [facility], [address] [facility] [address], [place], [place], [id number], [place] tel:[phone] [facility] Open wound of fingers, without mention of complication Nov- 8 Z-Converted Provider. . [facility], [address] [facility] [address], [place], [place], [id number], [place] tel:[phone] Converted Locations No Information Mar-0 8 Sylvester Colin. [address] [place] [address], [id number]. tel:[phone] [facility], [address] [facility] [address], [place], [place], [id number], [place] tel:[phone] [facility] ASTHMA,UNSPEC IFIED TYPE, UNSPECIFIED Mar-0 8 Sylvester Colin. [address] [place] [address], [id number]. tel:[phone] [facility], [address] [facility] [address], [place], [place], [id number], [place] tel:[phone] Converted Locations No Information 7 Sylvester Colin. [address] [place], [place], [id number]. tel:[phone] [facility], [address] [facility] [address], [place], [place], [id number], [place] tel:[phone] [facility] Depressive disorder, not elsewhere classified Nov-0 7 Sylvester Colin. [address], [place], [id number]. tel:[phone] [facility], [address] [facility] [address], [place], [place], [id number], [place] tel:[phone] Converted Locations No Information 7 Sylvester Colin. [address] [place] [address], [id number]. tel:[phone] [facility], [address] [facility] [address], [place], [place], [id number], [place] tel:[phone] [facility] Backache, unspecified 7 Z-Converted Provider. . [facility], [address] [facility] [address], [place], [place], [id number], [place] tel:[phone] [facility] No Information 7 Z-Converted Provider. . [facility], [address] [facility] [address], [place], [place], [id number], [place] tel:[phone] [facility] Anemia, unspecifiedUn specified essential hypertensionR outine general medical examination at a health care facility 7 Sylvester Colin. [address] [place] [address], [id number]. tel:[phone] [facility], [address] [facility] [address], [place], [place], [id number], [place] tel:[phone] [facility] Other disorders of menstruation and other abnormal bleeding from female genital tract 6 No Information [facility], [address] [facility] [address], [place], [place], [id number], [place] tel:[phone] Converted Locations No Information 6 No Information [facility], [address] [facility] [address], [place], [place], [id number], [place] tel:[phone] [facility] Nondependent tobacco use disorder 6 Sylvester Colin. [address] [facility], [place], [place], [id number]. tel:[phone] Family History Family Member Type Diagnosis Age At Onset No Information Immunizations Vaccine Date Status Comments Influenza Vaccine administered Source: Onelia flores Immunization Record Tetanus and Diphtheria Toxoid administere d Source: New Immunization Record Payers Payer name Insurance type Covered green party ID Authoriza tion(s) No Information Social History Type Description Quantity Date Captured Comments Sex Female Smoking Status No Information Chief Complaint And Reason For Visit No Information Reason For Referral Reason For Referral No Information History Of Present Illness Encounter Date Complaint History Of Prese nt Illness No Information Functional Status Date Functional Assessmen t No Information Instructions Date Instruction Additional Infor mation No Information Assessments Type Assessment Date No Information Patient Care Teams Name Effective Dates (start - stop) Status Members No Information
--- NOTE | 2025-06-21 13:54 | MHC.OFFVIS ---
Vital Signs 06/21/25 13:56 Height 5 ft 6 in Weight 154 lb BMI 24.9 Intake Visit Reasons: OV- Right knee pain Intake Note: Tiffani is a 64 year old female who presents today for a follow up of her right knee pain. At last visit on 10/05/24 patient was referred to physical therapy and was given a steroid injection. At today's visit she states that injection helped for about 6 months. She was not able to attend physical therapy. States now having bilateral knee pain with the right knee being the worse. She complains her pain increases at night making it difficult to sleep. Finds no relief with naproxen or Tylenol. Allergies atorvastatin (From Lipitor) Allergy (Intermediate, Verified 06/21/25 14:00) swelling/hives lisinopril Allergy (Intermediate, Verified 06/21/25 14:00) Face Swelling Medication List - Last Reconciled 06/21/25 by Imer Tim PA-C albuterol sulfate 90 mcg/actuation (ProAir HFA) 2 puffs inhalation Q4-6H PRN amlodipine 10 mg PO DAILY celecoxib (Celebrex) 200 mg PO BID 30 days fluoxetine 10 mg PO DAILY hydrochlorothiazide 12.5 mg PO DAILY losartan 50 mg PO DAILY trazodone 50 mg PO BEDTIME HPI HPI OV- Right knee pain: Details: 64-year-old female returns to the office today for ongoing right knee pain. The patient states her injection from September lasted until approximately 2 months ago. She complains of pain on the inside of the kneecap which causes discomfort with stairs and bending. 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 Tenderness along the medial joint line. Full ROM with crepitus. Positive Callie?s. No ligamentous laxity. NVI. Office Procedures AMB Joint Injection/Aspiration Joint Injection/Aspiration Primary Site: Right Knee Prep: site was prepped using aseptic technique, ethochloride spray was applied and injection warnings given Injected: 40 mg of, Decadron, with 3 mL of, 1% plain Lidocaine, 0.25% Bupivacaine and in the joint Approach Used: anterolateral Procedure: The patient tolerated the procedure well and there was some relief with the local anesthesia Coding 36659 - Glenohumeral/Tronchanteric Bursa/Intraarticular Procedure code (CPT) selection complete Results Reviewed Results Reviewed: Xrays were obtained in the office today and personally reviewed by me show medial and PF OA Assessment & Plan Assessment & Plan (1) Osteoarthritis of right knee: Code(s): M17.11 - Unilateral primary osteoarthritis, right knee Category: Medical Qualifiers: Osteoarthritis type: primary Qualified Code(s): M17.11 - Unilateral primary osteoarthritis, right knee Plan: We discussed options today, which include steroid injection. The patient did consent to move forward with the injection, which was tolerated well.? I recommended rest, ice and elevation and OTC antiinflammatories prn for discomfort. A prescription for Celebrex was sent to the pharmacy. If symptoms persist over the next 6-8 weeks, they will contact our office, otherwise, prn Orders: Orders XR knee RT 3V Today M17.11 - Unilateral primary osteoarthritis, right knee Medications: New celecoxib (Celebrex) 200 mg PO BID 60 caps 3RF 30 days Coding Level of Care Code Est Pt Level 3 (57374) Complex EM visit Add On G2211 Diagnoses Primary osteoarthritis of right knee M17.11 Osteoarthritis type: primary CPT Codes Coding - Joint 7: 16538 - Glenohumeral/Tronchanteric Bursa/Intraarticular ([id number])
[2025-06-21 13:56] VITALS: BMI 24.9
--- OUTSIDE RECORDS SUMMARY | 2025-06-21 16:41 | XMS_ITS | Patient Health Record ---
Author Organization [facility] Address [address] [place] [address] Care Team Providers Care Database Admin Name Role Phone Luz Key Primary Care Provider UnavailOwen Topete Unavailable [phone] Allergies Allergen (clinical drug ingredient) Drug/Non Drug Allergy documented on EMR Reaction Allergy Type Onset Date Status lisinopril Lisinopril Unknown Drug Allergy Activ e Reason For Referral No Information Medications Medication SIG (Take, Route, Frequency, Duration) Notes Start Date End Date Status traZODone HCl 50mg A ctive FLUoxetine HCl 08/10/2024 08/10/2024 Act arcelia Percocet 1 4 x a day Active hydroCHLOROthiazide Active Colyte with Flavor Packs 240 GM as directed Orally once; Duration: 1 day(s) 11/16/2012 Active Problems Problem Type SNOMED Code ICD Code Onset Dates Problem Status W/U Status Risk Notes Problem Long-term current use of drug therapy (780329564) Encounter for long-term (current) use of other medications (V58.69) Active confirmed Problem Colon cancer screening (413571017) Colon cancer screening (V76.51) Active confirmed Plan Of Treatment Future Test Test Name Order Date COLONOSCOPY 11/16/2012 Insurance Providers Payer Name Payer Address Payer Phone Subscriber Number Group Number Insured Name Patient Relationship to Insured Coverage Start Date Coverage End Date MEDICARE OF [place] [address] [place] [id number] [phone] [id number] EARL MENDOZA Self - patient is the insured [facility]ID [facility] [employer] [facility] [address] [place] [phone] [id number] EARL MENDOZA Self - patient is the insured Medical (General) History Medical History History ICD Code hypertension Denies [place],DM,CVA,Lung disease,renal dise ase Depression/anxiety she does have a variety of different ach es and pains
--- OUTSIDE RECORDS SUMMARY | 2025-06-21 16:41 | XMS_ITS | Clinical Summary ---
Author Organization [facility] [place] [address] Care Team Providers Care Cyber Analyst Name Role Phone Porsha Robles MD Primary Care Provider [phone] Social History Tobacco Use Types Packs/Day Years [...] Last Done Comments Breast Cancer Screening 1959 Colorectal Cancer Screening: Colonoscopy 1959 DTaP,Tdap,and Td Vaccines (1 - Tdap) 1978 Cervical Cancer Screening: P ap Smear 1980 Pneumococcal Vaccine: 50+ Ye ars (1 of 1 - PCV) 2009 Zoster Vaccines (1 of 2) 2009 Hepatitis C Screening 07/24/2022 Osteoporosis Screening (Bone Density Screening) 07/24/2022 Social Influencers of Health Screening 07/24/2022 Falls Risk Assessment 2024 Depression Screening 08/10/2024 COVID-19 Vaccine (1 - 2024-2 6 season) 2025 Influenza Vaccine (#1) 2025 RSV Immunization Adult Patie nts (1 - 1-dose 75+ series) 2034 HIB [...] age to complete this topic Meningococcal B Vaccine Aged Out No l onger eligible based on patient's age to complete this topic RSV Immunization Patients Un jay 20 months Aged Out No longer eligible b ased on patient's age to complete this topic Varicella Vaccines Aged Out No longer eligible based on patient's age to complete this topic Care Teams Cyber Analyst Relationship Specialty Start Date End Date Porsha Robles MD [address] [place] [id number] PCP - General Internal Medicine 05/22/22
--- OUTSIDE RECORDS SUMMARY | 2025-06-21 16:42 | XMS_ITS | Clinical Summary ---
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 Problem Noted Date Diagnosed Date Psychophysiological insomnia 06/25/2017 Smoker 06/25/2017 Anxiety state Depression Essential hypertension Right knee pain Chronic bilateral low back pain Immunizations Immunization Administration Dates Next Due Flu, Preservative Free 06/18/2020,2018,09/09/2018,06/25 INFLUENZA, SEASONAL, INJECTABLE 05/09/2014,06/10 INFLUENZA, SEASONAL, INJECTA BLE, PRESERVATIVE FREE 04/28/2016,06/22/2015 Moderna COVID-19 Vaccine, re d cap blue label, 12+ Primary Series 08/12/2021 PNEUMOCOCCAL POLYSACCHARIDE PPV23 (Pneumovax 23) 10/07/2018 TDAP 09/09/2018 Td (adult), 5 Lf tetanus tox oid (Tenivac), preservative free 08/10/2000 Td (adult),2 Lf tetanus toxo id (TDVAX), preservative free 08/10/2000 Family History Medical History Relation [...] 92 09/20/2020 2:40 PM EST Temperature 36.8 C (98.3 F) 09/20/2020 2:40 PM EST Respiratory Rate 16 09/20/2020 2:40 PM EST Oxygen Saturation - - Inhaled Oxygen Concentration - - Weight 78.5 kg (173 lb) 09/20/2020 2:40 PM EST Height 162.6 cm (5' 4 ) 08/20/2020 10:31 AM EST Body Mass Index 29.7 08/20/2020 10:31 AM EST Plan of Treatment Health Maintenance Due Date Last Done Comments Anxiety Screening 1960 Medicare Annual Wellness Visit 1977 CT Colonography 2004 Colonoscopy 2004 Fecal DNA 2004 Flexible Sigmoidoscopy 2004 Imm-Zoster, Recombinant (1 of 2) 2009 Imm-Pneumococcal 50+ (2 of 2 - PCV) 10/07/2019 10/07/2018 Tobacco Cessation Counseling (#1) 10/07/2019 019, 09/29/2017 Tobacco Screening 10/07/2019 10/07/2018, 09/29/2017 Breast Cancer Screening (Mammogram) 09/13/2020 09/13/2018 Depression Monitoring 09/18/2020 06/18/2020 Colorectal Cancer Screening 05/06/2022 FIT/gFOBT 05/06/2022 05/06/2021 Diabetes Screening 06/18/2023 06/18/2020, 1 08/18/2019, 09/09/2018, Additional history exists Lipid Screening 06/18/2023 06/18/2020 Bone Density Screening 2024 Falls Prevention 2024 Alcohol and Drug Screen 08/10/2024 06/18/20 20, 09/29/2017, 09/29/2017 [id number] ( season) 2025 022 Imm-Influenza (#1) 2025 06/18/2020, 0 05/05/2019, 09/09/2018, Additional history exists Imm-DTaP/Tdap/Td (2 - Td or Tdap) 09/09/2028 [...] 3:00 AM EDT Damian Ratliff MD LAB BODY FLUIDS AND STOOLS [facility] Final Result * (ABNORMAL) HEPATITIS A,B,C PANEL (06/18/2020 3:19 PM EST) HEPATITIS B SURFACE ANTIBODY NEGATIVE NEGATIVE [facility] HEPATITIS C VIRUS DIAGNOSTIC NEGATIVE NEGATIVE [facility] HEPATITIS A ANTIBODY TOTAL POSITIVE(A) NEGATIVE [facility] Comment: Over the counter supplements containing high doses of biotin may interfere with this assay. If interference is suspected, patients shoud be retested after refraining from biotin supplements for 72 hours. HEPATITIS B CORE ANTIBODY NEGATIVE NEGATIVE [facility] HEPATITIS B SURFACE ANTIGEN NEGATIVE NEGATIVE [facility] Comment: Over the counter supplements containing high doses of biotin may interfere with this assay. If interference is suspected, patients shoud be retested after refraining from biotin supplements for 72 hours. 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 Use of a 4th generation assay is the current CDC recommendation for HIV screening. Blood Blood / Unknown 06/18/2020 3 :19 PM EST 06/18/2020 4:13 PM EST Narrative [facility] - 06/18/2020 7:11 PM EST [employer] [address] Production Cloth Cutter - Asiya Wei MD PT ID [id number] ORD# [id number] [facility] - BLOOD [place] [address], * HEMOGLOBIN, GLYCOSYLATED (A1C) (06/18/2020 3:19 PM EST) [facility] GLYCATED HEMOGLOBIN A1C 5.4 <6.5 % [facility] ESTIMATED AVERAGE GLUCOSE 108 mg/dL [facility] Blood Blood / Unknown 06/18/2020 3 :19 PM EST 06/18/2020 4:13 PM EST Narrative [facility] - 06/18/2020 8:11 PM EST [employer], [place] [address] Production Cloth Cutter - Asiay Wei MD PT ID [id number] ORD# [id number] [facility] - BLOOD DRAW Final Resu lt Performing Organization Address City/[facility]/[place]IP [place] [address], * (ABNORMAL) LIPID PANEL (06/18/2020 3:13 PM EST) CHOLESTEROL 190 0 - 200 mg/dL [facility] TRIGLYCERIDES 247(H) 0 - 150 mg/dL [facility] HDL CHOLESTEROL 55 >40 mg/dL [facility] LDL CALCULATED 86 0 - 100 mg/dL [facility] TC-HDLC RATIO 3.5 0 - 4.4 mg/dL [facility] Blood Blood / Unknown 06/18/2020 3 :13 PM EST 06/18/2020 4:13 PM EST Narrative [facility] - 06/18/2020 6:23 PM EST [facility] [employer], a member of [address] [address] Production Cloth Cutter - Asiya Wei MD PT ID [id number] ORD# [id number] Capri Rodriguez [facility] - BLOOD DRAW Final Resu lt [facility] [address] [place] [address], from Last 3 Months or Most Recently Relevant to Health Maintenance Insurance [place] MEDICAID [employer] MEDICARE [facility]
== END 2025-06-21 14:57 | disposition home or self-care (01) ==
LOC: HO.HOS 13:41
PROVIDERS: Visit Provider Physician Assistant
DX: M17.11 Unilateral primary osteoarthritis, right knee (principal)
CPT/HCPCS: 20610; 99213

== ENCOUNTER → 2025-06-21 13:44 | Outpatient (BNV) | payer OTHER, SELFPAY | PROVIDERS: Visit Provider Radiology Diagnostic Radiology | DX: M17.11 Unilateral primary osteoarthritis, right knee (principal) | CPT/HCPCS: 73562 ==

== ENCOUNTER 2025-06-21 15:01 | Outpatient (REF) | payer OTHER, SELFPAY ==
--- OUTSIDE RECORDS SUMMARY | 2007-12-07 19:00 | XMS_ITS | Continuity of Care Document ---
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 [address] [place], [place], [id number]. tel:[phone] [facility]aid [facility]uevar[facility], [address] [facility],[address], [place], [place], [id number], [place] tel:[phone] Converted Locations No Information 8200 8 No Information [facility], [address] [facility] [address], [place], [place], [id number], [place] tel:[phone] Converted Locations No Information 8 Z-Converted Provider. . [facility], [address] [facility] [address], [place], [place], [id number], [place] tel:[phone] [facility] Open wound of fingers, without mention of complication Nov- 8 Z-Converted Provider. . [facility], [address] [facility] [address], [place], [place], [id number], [place] tel:[phone] Converted Locations No Information Mar-0 8 Sylvester Colin. [address] [place] [address], [id number]. tel:[phone] [facility], [address] [facility] [address], [place], [place], [id number], [place] tel:[phone] [facility] ASTHMA,UNSPEC IFIED TYPE, UNSPECIFIED Mar-0 8 Sylvester Colin. [address] [place] [address], [id number]. tel:[phone] [facility], [address] [facility] [address], [place], [place], [id number], [place] tel:[phone] Converted Locations No Information 7 Sylvester Colin. [address] [place], [place], [id number]. tel:[phone] [facility], [address] [facility] [address], [place], [place], [id number], [place] tel:[phone] [facility] Depressive disorder, not elsewhere classified Nov-0 7 Sylvester Colin. [address] [place], [place], [id number]. tel:[phone] [facility], [address] [facility] [address], [place], [place], [id number], [place] tel:[phone] Converted Locations No Information 7 Sylvester Colin. [address] [place] [address], [id number]. tel:[phone] [facility], [address] [facility] [address], [place], [place], [id number], [place] tel:[phone] [facility] Backache, unspecified 7 Z-Converted Provider. . [facility], [address] [facility] [address], [place], [place], [id number], [place] tel:[phone] [facility] No Information 7 Z-Converted Provider. . [facility], [address] [facility] [address], [place], [place], [id number], [place] tel:[phone] [facility] Anemia, unspecifiedUn specified essential hypertensionR outine general medical examination at a health care facility 7 Sylvester Colin. [address] [place] [address], [id number]. tel:[phone] [facility], [address] [facility] [address], [place], [place], [id number], [place] tel:[phone] [facility] Other disorders of menstruation and other abnormal bleeding from female genital tract 6 No Information [facility], [address] [facility] [address], [place], [place], [id number], [place] tel:[phone] Converted Locations No Information 6 No Information [facility], [address] [facility] [address], [place], [place], [id number], [place] tel:[phone] [facility] Nondependent tobacco use disorder [address] [facility], [place], [place], [id number]. tel:[phone] Family History Family Member Type Diagnosis Age At Onset No Information Immunizations Vaccine Date Status Comments Influenza Vaccine administered Source: Onelia flores Immunization Record Tetanus and Diphtheria Toxoid administere d Source: New Immunization Record Payers Payer name Insurance type Covered republican ID Authoriza tion(s) No Information Social History [...]
--- NOTE | ~2025-06-21 | XR_ITS ---
EXAMINATION: XR KNEE, RIGHT CLINICAL INFORMATION: M17.11 - Unilateral primary osteoarthritis, right knee COMPARISON: January 14, 2024 TECHNIQUE: AP bilateral standing, sunrise, and lateral views of the right knee. FINDINGS: There is mild narrowing of medial and lateral joint spaces, similar to the prior. There is an osteophyte involving the lateral tibial spine. There are small marginal osteophytes involving tibial plateau and the femoral margin, patella, and medial trochlea. XR/XR knee RT 3V IMPRESSION: Mild osteoarthritis Electronically signed by: Guillermo Mckenna MD 06/21/2025 02:19 PM JOYCE
--- OUTSIDE RECORDS SUMMARY | 2025-06-22 18:17 | XMS_ITS | Clinical Summary ---
Author Organization [employer] [facility] [place] [address] Care Team Providers Care Disc Pad Plate Filler Name Role Phone Porsha Robles MD Primary Care Provider [phone] Social History Tobacco Use Types Packs/Day Years [...] age to complete this topic Care Teams Disc Pad Plate Filler Relationship Specialty Start Date End Date Porsha Robles MD [address] [place] [id number] PCP - General Internal Medicine 05/22/22
--- OUTSIDE RECORDS SUMMARY | 2025-06-22 18:17 | XMS_ITS | Patient Health Record ---
Author Organization [facility] Address [address] [place] [address] Care Team Providers Care Embroidery Finisher Name Role Phone Luz Key Primary Care Provider UnavailOwen Topete Unavailable [phone] Allergies Allergen (clinical drug ingredient) Drug/Non Drug [...] Problem Long-term current use of drug therapy (369522840) Encounter for long-term (current) use of other medications (V58.69) Active confirmed Problem Colon cancer screening (998013923) Colon cancer screening (V76.51) Active confirmed Plan Of Treatment Future Test Test Name Order Date COLONOSCOPY 11/16/2012 Insurance Providers Payer Name Payer Address Payer Phone Subscriber Number Group Number Insured Name Patient Relationship to Insured Coverage Start Date Coverage End Date MEDICARE OF [place] [address] [place] [id number] EARL MENDOZA Self - patient is the insured MEDICAID OF [employer] [facility] [address] [place] [phone] [id number] EARL MENDOZA Self - patient is the insured Medical (General) History Medical History History ICD Code hypertension Denies [place],DM,CVA,Lung disease,renal dise ase Depression/anxiety she does have a variety of different ach es and pains
--- OUTSIDE RECORDS SUMMARY | 2025-06-22 18:17 | XMS_ITS | Clinical Summary ---
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 Problem Noted Date Diagnosed Date Psychophysiological insomnia [...] Drug Screen 08/10/2024 06/18/20 20, 09/29/2017, 09/29/2017 [id number] ( season) 2025 022 Imm-Influenza (#1) 2025 [...] Ratliff MD LAB BODY FLUIDS AND STOOLS [facility] Final Result * (ABNORMAL) HEPATITIS A,B,C PANEL (06/18/2020 3:19 PM EST) HEPATITIS B SURFACE ANTIBODY NEGATIVE NEGATIVE [facility] HEPATITIS C VIRUS DIAGNOSTIC NEGATIVE NEGATIVE [facility] HEPATITIS A ANTIBODY TOTAL POSITIVE(A) NEGATIVE [facility] Comment: Over the counter supplements containing high doses of biotin may interfere with this assay. If interference is suspected, patients shoud be retested after refraining from biotin supplements for 72 hours. HEPATITIS B CORE ANTIBODY NEGATIVE NEGATIVE [facility] HEPATITIS B SURFACE ANTIGEN NEGATIVE NEGATIVE [facility] Comment: Over the counter supplements containing high doses of biotin may interfere with this assay. If interference is suspected, patients shoud be retested after refraining from biotin supplements for 72 hours. Blood Blood / Unknown 06/18/2020 3 :19 PM EST 06/18/2020 4:13 PM EST Narrative [facility] - 06/18/2020 8:29 PM EST [employer], a member of [address] [address] Director Compliance - Asiya Wei MD PT ID [id number] ORD# [id number] [facility] - BLOOD DRAW Edited Res ult - Final [address] [address], [place] [phone] * HIV-1 & HIV-2 ANTIBODIES (06/18/2020 3:19 PM EST) [facility] HIV 1 AND 2 ANTIBODY SCREEN NEGATIVE NEGATIVE [facility] Comment: This assay is a 4th [...] PM EST 06/18/2020 4:13 PM EST Narrative [facility] - 06/18/2020 7:11 PM EST [employer], [place] [address] Director Compliance - Asiya Wei MD PT ID [id number] ORD# [id number] [facility] - BLOOD DRAW [place] [address], * HEMOGLOBIN, GLYCOSYLATED (A1C) (06/18/2020 3:19 PM EST) [facility] GLYCATED HEMOGLOBIN A1C 5.4 <6.5 % [facility] ESTIMATED AVERAGE GLUCOSE 108 mg/dL [facility] Blood Blood / Unknown 06/18/2020 3 :19 PM EST 06/18/2020 4:13 PM EST Narrative [facility] - 06/18/2020 8:11 PM EST [employer], [place] [address] Director Compliance - Asiya Wei MD PT ID [id number] ORD# [id number] [facility] - BLOOD DRAW Final Resu lt Performing Organization Address City/[facility]/ZIP [place] [address], * (ABNORMAL) LIPID PANEL (06/18/2020 3:13 PM EST) CHOLESTEROL 190 0 - 200 mg/dL [facility] TRIGLYCERIDES 247(H) 0 - 150 mg/dL [facility] HDL CHOLESTEROL 55 >40 mg/dL [facility] LDL CALCULATED 86 0 - 100 mg/dL [facility] TC-HDLC RATIO 3.5 0 - 4.4 mg/dL [facility] Blood Blood / Unknown 06/18/2020 3 :13 PM EST 06/18/2020 4:13 PM EST Narrative [facility] - 06/18/2020 6:23 PM EST [facility] [employer], a member of [address] [address] Director Compliance - Asiya Wei MD PT ID [id number] ORD# [id number] Capri Rodriguez [facility] - BLOOD DRAW Final Resu lt [facility] [address] [place] [address], from Last 3 Months or Most Recently Relevant to Health Maintenance Insurance [place] [employer] MEDICARE [facility]
== END 2025-06-21 15:02 | disposition home or self-care (01) ==
LOC: HO.HOSX 15:01
PROVIDERS: Visit Provider Physician Assistant
DX: M17.11 Unilateral primary osteoarthritis, right knee (principal)
CPT/HCPCS: 20610; 73562; 99212; J0665; J1100; J2003